=== PATIENT | female | born 1995 | race Caucasian/White ===

== ENCOUNTER 2021-12-11 14:31 | Emergency (ER) | payer BC ==
[~2021-12-11] VITALS: Ht 160 cm; Wt 68.0 kg
[2021-12-11 14:45] VITALS: BP 131/86
--- NOTE | 2021-12-11 14:59 | NUR ---
PT AMB TO BED 3.
--- NOTE | 2021-12-11 15:05 | NUR ---
26 Y/O F AMBULATED TO THE RESTROOM AND THAN TO BED 3, C/O VAGINAL SPOTTING TODAY, (1ST) HOME URINE PREG TEST 5 DAYS AGO WAS POSITIVE (2ND) HOME TEST 2 DAYS AGO WAS NEGATIVE. LMP 11/01/21. [id number]. PMH: MARC SULLIVAN
--- NOTE | 2021-12-11 15:29 | NUR ---
urine handed to microbiology lab technician in er
--- NOTE | 2021-12-11 15:29 | NUR ---
us at bedside
[2021-12-11 15:40] LABS: BASOPHILS # (AUTO) 0.1 K/uL (0.00-0.22); BASOPHILS % (AUTO) 0.7 % (0.0-2.0); EOSINOPHILS # (AUTO) 0.2 K/uL (0-0.4); EOSINOPHILS % (AUTO) 2.9 % (0.0-4.0); HEMATOCRIT 37.5 % (36-48); HEMOGLOBIN 13.1 g/dL (12.0-16.0); LYMPHOCYTES # (AUTO) 1.6 K/uL (2.5-16.5); LYMPHOCYTES % (AUTO) 21.6 % (20.5-51.1); MEAN CORPUSCULAR HEMOGLOBIN 30 pg (27-31); MEAN CORPUSCULAR HGB CONC 35 g/dL (33-37); MEAN CORPUSCULAR VOLUME 86.9 fL (80-94); MONOCYTES # (AUTO) 0.5 K/uL (0.8-1.0); NEUTROPHILS # (AUTO) 5.2 K/uL (1.8-7.7); NEUTROPHILS % (AUTO) 68.8 % (42.2-75.2); PLATELET COUNT (AUTO) 272 K/uL (140-450); RED BLOOD CELL COUNT(AUTO) 4.32 MIL/uL (4.20-5.40); RED CELL DISTRIBUTION WIDTH 13.4 % (11.6-13.7); WHITE BLOOD COUNT (AUTO) 7.5 K/uL (4.8-10.8)
[2021-12-11 15:47] LABS: APPEARANCE,URINE CLEAR (CLEAR); BILIRUBIN,URINE NEGATIVE (NEGATIVE); BLOOD, URINE 2+ (NEGATIVE); COLOR,URINE YELLOW (YELLOW); LEUKOCYTE ESTERASE ,URINE NEGATIVE (NEGATIVE); NITRITE, URINE NEGATIVE (NEGATIVE); UGLUCOSE NEGATIVE (NEGATIVE)
[2021-12-11 16:35] VITALS: BP 124/57
--- NOTE | 2021-12-11 16:35 | NUR ---
Patient discharged with v/s stable. Written and verbal after care instructions given and explained. Patient verbalized understanding. Ambulatory with steady gait. All questions addressed prior to discharge. Advised to follow up with PMD.
[2021-12-11 19:32] LABS: RBC,URINE 11-20 (MOD) /HPF (0-5); WBC,URINE NONE SEEN /HPF (0-5)
== END 2021-12-11 16:35 | disposition home or self-care (01) ==
LOC: MED 14:31
DX: N94.6 Dysmenorrhea, unspecified (principal); R10.2 Pelvic and perineal pain
CPT/HCPCS: 36415; 76817; 81001; 81025; 84702; 85025; 86900; 86901; 99284; Q0092

== ENCOUNTER 2022-02-04 16:59 | Emergency (ER) | payer BC ==
[~2022-02-04] VITALS: Ht 160 cm; Wt 69.6 kg
[2022-02-04 17:24] VITALS: BP 143/86
--- NOTE | 2022-02-04 18:13 | NUR ---
VICENTE CARMICHAEL WITH PT IN TRIAGE FOR FURTHER ASSESSMENT, PT MOTHER AT SIDE.
[2022-02-04] MEDS ORDERED: IBUP-2213 PO (18:30)
--- NOTE | 2022-02-04 18:37 | NUR ---
NO NURSING INTERVENTIONS GIVEN NO NEED FOR COMPLETE
== END 2022-02-04 18:39 | disposition home or self-care (01) ==
LOC: MED 16:59
DX: J02.9 Acute pharyngitis, unspecified (principal); Z79.899 Other long term (current) drug therapy
CPT/HCPCS: 99282

== ENCOUNTER 2022-04-01 17:02 | Emergency (ER) | payer BC, MEDICAID ==
[~2022-04-01] VITALS: Ht 160 cm; Wt 70.5 kg
[~2022-04-01 17:02] MED LIST: IBUP-2213 PO
[2022-04-01 17:31] VITALS: BP 135/95
--- NOTE | 2022-04-01 17:47 | NUR ---
pt being assesed by pa in triage room.
[2022-04-01 18:38] LABS: BASOPHILS % (AUTO) 0.4 % (0.0-2.0); EOSINOPHILS # (AUTO) 0.2 K/uL (0-0.4); HEMATOCRIT 37.5 % (36-48); HEMOGLOBIN 12.8 g/dL (12.0-16.0); LYMPHOCYTES # (AUTO) 2.2 K/uL (2.5-16.5); LYMPHOCYTES % (AUTO) 20.8 % (20.5-51.1); MEAN CORPUSCULAR HEMOGLOBIN 30 pg (27-31); MEAN CORPUSCULAR HGB CONC 34 g/dL (33-37); MEAN CORPUSCULAR VOLUME 86.5 fL (80-94); MONOCYTES # (AUTO) 0.6 K/uL (0.8-1.0); MONOCYTES % (AUTO) 5.6 % (1.7-9.3); NEUTROPHILS # (AUTO) 7.4 K/uL (1.8-7.7); NEUTROPHILS % (AUTO) 71.2 % (42.2-75.2); PLATELET COUNT (AUTO) 257 K/uL (140-450); RED BLOOD CELL COUNT(AUTO) 4.33 MIL/uL (4.20-5.40); RED CELL DISTRIBUTION WIDTH 13.8 % (11.6-13.7); WHITE BLOOD COUNT (AUTO) 10.4 K/uL (4.8-10.8)
[2022-04-01 18:43] LABS: APPEARANCE,URINE CLEAR (CLEAR); BILIRUBIN,URINE NEGATIVE (NEGATIVE); BLOOD, URINE NEGATIVE (NEGATIVE); COLOR,URINE YELLOW (YELLOW); LEUKOCYTE ESTERASE ,URINE NEGATIVE (NEGATIVE); NITRITE, URINE NEGATIVE (NEGATIVE); UGLUCOSE NEGATIVE (NEGATIVE)
--- NOTE | 2022-04-01 21:50 | NUR ---
DR. MCDONALD CALLING FOR PATIENT WITH NO ANSWER
--- NOTE | 2022-04-01 21:50 | NUR ---
PER DR. MCDONALD PT CALLED ON PERSONAL PHONE, IN LOBBY AND OUTSIDE. PT ELOPED FROM FACILITY AT THIS TIME.
== END 2022-04-01 21:50 | disposition left against medical advice (07) ==
LOC: MED 17:02
DX: O26.891 Other specified pregnancy related conditions, first trimester (principal); Z3A.01 Less than 8 weeks gestation of pregnancy
CPT/HCPCS: 36415; 76817; 81003; 84702; 85025; 86900; 86901; 99284; Q0092

== ENCOUNTER 2022-06-27 20:13 | Emergency (ER) | payer MEDICAID ==
[~2022-06-27] VITALS: Ht 160 cm; Wt 69.4 kg
[2022-06-27 20:17] VITALS: BP 125/65
[2022-06-27 20:20] VITALS: BP 125/65
--- NOTE | 2022-06-27 22:37 | NUR ---
Dr. Navarro examining patient.
--- NOTE | 2022-06-27 22:41 | NUR ---
Patient left without D/C papers.
--- NOTE | 2022-06-27 22:41 | NUR ---
Patient walked out ER with her family.
== END 2022-06-27 22:41 | disposition home or self-care (01) ==
LOC: MED 20:13
DX: O26.892 Other specified pregnancy related conditions, second trimester (principal); R07.89 Other chest pain; Z3A.17 17 weeks gestation of pregnancy; Z79.899 Other long term (current) drug therapy
CPT/HCPCS: 93005; 99283

== ENCOUNTER 2022-09-10 19:14 | Emergency (ER) | payer BC, MEDICAID ==
[~2022-09-10] VITALS: Ht 160 cm; Wt 77.1 kg
[2022-09-10 19:17] VITALS: BP 120/73
[2022-09-10] MEDS ORDERED: LORA10TA19 PO (19:53)
[2022-09-10] MEDS ORDERED: ACET-10509 PO (19:53)
[2022-09-10 20:07] VITALS: BP 123/73
== END 2022-09-10 20:08 | disposition home or self-care (01) ==
LOC: MED 19:14
DX: O26.892 Other specified pregnancy related conditions, second trimester (principal); J01.90 Acute sinusitis, unspecified; Z3A.27 27 weeks gestation of pregnancy; Z79.899 Other long term (current) drug therapy
CPT/HCPCS: 99282

== ENCOUNTER 2022-11-03 19:47 | Observation (INO) | payer BC ==
[~2022-11-03] VITALS: Ht 160 cm; Wt 77.1 kg
[~2022-11-03 19:47] MED LIST changes: +ACET-10509 PO; +LORA10TA19 PO
[2022-11-03] MEDS ORDERED: ONDANSETRON 4 MG/2 ML VIAL IVP PRN (20:10)
[2022-11-03] MEDS ORDERED: TERBUTALINE 1 MG/ML VIAL SUBQ SCH (20:10)
[2022-11-03] MEDS ORDERED: DEXT 5% / LACT RING 1,000 ML IV SCH (20:10)
[2022-11-03] MEDS ORDERED: DEXT 5% / LACT RING 1,000 ML IV ONE (20:10)
[2022-11-03 21:37] LABS: BASOPHILS % (AUTO) 0.1 % (0.0-2.0); EOSINOPHILS % (AUTO) 0.1 % (0.0-4.0); HEMATOCRIT 36.4 % (36-48); HEMOGLOBIN 12.5 g/dL (12.0-16.0); LYMPHOCYTES # (AUTO) 0.2 K/uL (2.5-16.5); LYMPHOCYTES % (AUTO) 2.7 % (20.5-51.1); MEAN CORPUSCULAR HEMOGLOBIN 31 pg (27-31); MEAN CORPUSCULAR HGB CONC 34 g/dL (33-37); MEAN CORPUSCULAR VOLUME 91.5 fL (80-94); MONOCYTES # (AUTO) 0.2 K/uL (0.8-1.0); MONOCYTES % (AUTO) 2.1 % (1.7-9.3); NEUTROPHILS # (AUTO) 8.3 K/uL (1.8-7.7); PLATELET COUNT (AUTO) 194 K/uL (140-450); RED BLOOD CELL COUNT(AUTO) 3.98 MIL/uL (4.20-5.40); RED CELL DISTRIBUTION WIDTH 14.1 % (11.6-13.7); WHITE BLOOD COUNT (AUTO) 8.8 K/uL (4.8-10.8)
[2022-11-03 22:04] LABS: ALBUMIN 3.2 g/dL (3.4-5.0); ANION GAP 16.8 (8-16); CARBON DIOXIDE 20.3 mmol/L (21-32); CREATININE 0.6 mg/dL (0.6-1.3); POTASSIUM 3.1 mmol/L (3.5-5.1); TOTAL BILIRUBIN 0.6 mg/dL (0.0-1.0)
== END 2022-11-03 22:20 | disposition home or self-care (01) ==
LOC: MLD 19:47
PROVIDERS: ADMIT Obstetrics & Gynecology; ATTEND Obstetrics & Gynecology
DX: O26.893 Other specified pregnancy related conditions, third trimester (principal); Z20.822 Contact with and (suspected) exposure to COVID-19; R10.9 Unspecified abdominal pain; Z3A.35 35 weeks gestation of pregnancy
CPT/HCPCS: 36415; 80053; 85025; 87426; 96361; 96374; G0378; G0379; J2405

== ENCOUNTER 2022-12-30 14:47 | Emergency (ER) | payer BC ==
[~2022-12-30] VITALS: Ht 160 cm; Wt 70.3 kg
[2022-12-30 14:51] VITALS: BP 129/91
[2022-12-30 19:30] VITALS: BP 129/91
--- NOTE | 2022-12-30 19:30 | NUR ---
Patient discharged with v/s stable. Written and verbal after care instructions given and explained. Patient verbalized understanding. Ambulatory with steady gait. All questions addressed prior to discharge. Advised to follow up with PMD. DX: MUSCLE STRAIN
== END 2022-12-30 19:30 | disposition home or self-care (01) ==
LOC: MED 14:47
DX: M79.662 Pain in left lower leg (principal); M25.532 Pain in left wrist; Z79.899 Other long term (current) drug therapy
CPT/HCPCS: 93971; 99284; Q0092

== ENCOUNTER 2023-02-23 19:01 | Emergency (ER) | payer BC, MEDICAID ==
[~2023-02-23] VITALS: Ht 160 cm; Wt 68.0 kg
[2023-02-23 19:10] VITALS: BP 141/80
--- NOTE | 2023-02-23 19:40 | NUR ---
PT TO 1
--- NOTE | 2023-02-23 19:49 | NUR ---
INTERVIEWED PATIENT AT BEDSIDE, HAS COMPLAINTS OF POSSIBLE PINK EYE OF THE LEFT EYE. FIRST NOTICED TODAY. ALSO STATES THAT SHE IS STARTING TO DEVELOP A SORE THROAT AND HEADACHE. PMH: BLOOD CLOT LEFT THIGH; CURRENTLY BEING MANAGED WITH LOVENOX
[2023-02-23] MEDS ORDERED: POLY10SO OP (20:46)
[2023-02-23 20:55] VITALS: BP 141/80
--- NOTE | 2023-02-23 20:55 | NUR ---
Patient discharged with v/s stable. Written and verbal after care instructions given and explained. Patient alert, oriented and verbalized understanding of instructions. Ambulatory with steady gait. All questions addressed prior to discharge. ID band removed. Patient advised to follow up with PMD. Rx of POLYMYXIN B SULF/TRIMETHOPRIM given. Patient educated on indication of medication including possible reaction and side effects. Opportunity to ask questions provided and answered. DX: BACTERIAL CONJUNCTIVITIS, ADULT
== END 2023-02-23 20:55 | disposition home or self-care (01) ==
LOC: MED 19:01
DX: H10.9 Unspecified conjunctivitis (principal); I10 Essential (primary) hypertension; Z79.899 Other long term (current) drug therapy
CPT/HCPCS: 99283

== ENCOUNTER 2023-03-12 18:00 | Emergency (ER) | payer MEDICAID, OTHER ==
[~2023-03-12] VITALS: Ht 160 cm; Wt 68.0 kg
[~2023-03-12 18:00] MED LIST changes: +POLY10SO OP
[2023-03-12 18:14] VITALS: BP 134/75
--- NOTE | 2023-03-12 18:38 | NUR ---
28YO F PRESENTS W/ARMS AND LEGS CONSTANT TINGLING, PINS AND NEEDLES SENSATION, INTERMITTENT HOT AND COLD SENSATION X 2 1/2, PT STATES SYMPTONS BEHAND AFTER STARTING LOVANOX 3MTHS AGO WHEN FOUND BLOOD CLOTH WHEN DELIVERED CHILD. DENIES N,V,D,C.FEVER,CHILLS,INJURY. AOX4, SAFETY MAINTAINED.
--- NOTE | 2023-03-12 18:38 | NUR ---
DR BOSWELL AT BEDSIDE
[2023-03-12 18:52] VITALS: BP 128/68
== END 2023-03-12 18:52 | disposition home or self-care (01) ==
LOC: MED 18:00
DX: R20.0 Anesthesia of skin (principal); R20.2 Paresthesia of skin; K21.9 Gastro-esophageal reflux disease without esophagitis; Z79.899 Other long term (current) drug therapy; Z79.1 Long term (current) use of non-steroidal anti-inflammatories (NSAID)
CPT/HCPCS: 99281